=== PATIENT | female | born 1990 | race Caucasian/White ===

== ENCOUNTER 2017-07-09 09:27 | Emergency (ER) | payer SELFPAY ==
[2017-07-09 09:32] VITALS: BP 143/95
[2017-07-09] MEDS ORDERED: HYDROCODONE/ACETAMINOPHEN 5-325 MG TABLET PO ONE (09:49)
[2017-07-09] MEDS ORDERED: PENICILLIN V POTASSIUM 500 MG TABLET PO ONE (09:49)
[2017-07-09] MEDS ORDERED: IBUPROFEN 800 MG TABLET PO ONE (09:49)
--- NOTE | 2017-07-09 09:51 | ER Document Report ---
HPI - HPI Patient complains to provider of: dental pain Onset: Other - 2 days Onset/Duration: Persistent Quality of pain: Achy Pain Level: 4 Context: Patient complains of dental pain to left upper tooth for the past 2 days. Patient denies any fever or facial swelling. Associated Symptoms: Other - Dental pain. denies: Fever Exacerbated by: Denies Relieved by: Denies Similar symptoms previously: Yes Recently seen / treated by doctor: No - ROS ROS below otherwise negative: Yes Systems Reviewed and Negative: Yes All other systems reviewed and negative - EENT Notes: Dental pain - CARDIOVASCULAR Cardiovascular: DENIES: Chest pain - GASTROINTESTINAL Gastrointestinal: DENIES: Nausea, Patient vomiting - MUSCULOSKELETAL Musculoskeletal: DENIES: Neck Pain - DERM Skin Color: Normal Skin Problems: None Past Medical History - General Information source: Patient - Social History Smoking Status: Current Every Day Smoker Chew tobacco use (# tins/day): No Frequency of alcohol use: Rare Drug Abuse: None Occupation: none Family History: None Patient has suicidal ideation: No Patient has homicidal ideation: No Pulmonary Medical History: Reports: Hx Asthma Renal/ Medical History: Reports: Hx Kidney Stones, Hx Ovarian Cysts. Denies: Hx Peritoneal Dialysis Psychiatric Medical History: Reports: Hx Bipolar Disorder, Hx Depression - anxiety Past Surgical History: Reports: Hx Cholecystectomy, Hx Gynecologic Surgery - ovarian cyst - Immunizations Hx Diphtheria, Pertussis, Tetanus Vaccination: Yes Vertical Provider Document - CONSTITUTIONAL Agree With Documented VS: Yes Exam Limitations: No Limitations General Appearance: WD/WN, No Apparent Distress - INFECTION CONTROL TRAVEL OUTSIDE OF THE [place] IN LAST 30 DAYS: No - HEENT HEENT: Atraumatic, Normocephalic Mouth Diagram: 1 - tenderness, dental decay - NECK Neck: Normal Inspection, Supple - RESPIRATORY Respiratory: Breath Sounds Normal, No Respiratory Distress, Chest Non-Tender O2 Sat by Pulse Oximetry: 99 - CARDIOVASCULAR Cardiovascular: Regular Rate, Regular Rhythm, No Murmur - MUSCULOSKELETAL/EXTREMETIES Musculoskeletal/Extremeties: MAEW - NEURO Level of Consciousness: Awake, Alert, Appropriate Motor/Sensory: No Motor Deficit - DERM Integumentary: Warm, Dry, No Rash Course - Re-evaluation Re-evalutation: 07/09/17 09:50 The patient has been informed that they may have pre-hypertension or hypertension based on a blood pressure reading in the emergency department. I recommend that patient call the primary care provider listed on their discharge instructions or a physician of their choice by this week to arrange follow-up for further evaluation of possible pre-hypertension or hypertension. - Vital Signs Vital signs: Temp Pulse Resp BP Pulse Ox 98.5 F 85 16 143/95 H 99 07/09/17 09:30 07/09/17 09:30 07/09/17 09:30 07/09/17 09:30 07/09/17 09:30 Discharge - Discharge Clinical Impression: Elevated blood pressure reading, Tooth ache Condition: Stable Disposition: HOME, SELF-CARE Instructions: Dentist, Oral Narcotic Medication ([facility]), Penicillin V K ([facility]), Toothache ([facility]) Additional Instructions: Return immediately for any new or worsening symptoms Followup with your dental care provider, call tomorrow to make a followup appointment Prescriptions: Hydrocodone/Acetaminophen [[place] 5-325 Tablet] 1 each PO Q4 PRN #12 tablet PRN Reason: Naproxen [Naprosyn 250 Nmg Tablet] 1 tab PO BID #14 tablet Penicillin V Potassium [Penicillin Vk 500 mg Tablet] 500 mg PO BID #20 tablet Forms: Elevated Blood Pressure Referrals: [facility] [Provider Group] - Follow up as needed
== END 2017-07-09 09:57 | disposition home or self-care (01) ==
LOC: ER 09:27
DX: K02.9 Dental caries, unspecified (principal); K08.89 Other specified disorders of teeth and supporting structures; R03.0 Elevated blood-pressure reading, without diagnosis of hypertension; J45.909 Unspecified asthma, uncomplicated; F17.200 Nicotine dependence, unspecified, uncomplicated
CPT/HCPCS: 99282

== ENCOUNTER 2017-12-20 10:26 | Emergency (ER) | payer SELFPAY ==
--- NOTE | 2017-12-20 11:22 | ER Document Report ---
ED Medical Screen (RME) - General Chief Complaint: Chest Pain Stated Complaint: CHEST PAIN Time Seen by Provider: 12/20/17 11:20 Mode of Arrival: Ambulatory Information source: Patient Notes: This is a 27-year-old female with a history of sudden sharp retrosternal chest pain radiating to the back that started shortly prior to arrival. Patient states she does feel slightly shortness of breath. She denies any calf pain. She is currently not on any medicines. The patient does smoke a few cigarettes a day and she does melinda. She states she last very early this morning. PERC negative TRAVEL OUTSIDE OF THE [place] IN LAST 30 DAYS: No - Related Data Allergies/Adverse Reactions: acetaminophen [From Tylox] Allergy (Verified 07/09/17 09:30) oxycodone [From Tylox] Allergy (Verified 07/09/17 09:30) Tetanus Vaccines and Toxoid Allergy (Verified 07/09/17 09:30) Past Medical History - Social History Chew tobacco use (# tins/day): No Frequency of alcohol use: Occasional Drug Abuse: None Pulmonary Medical History: Reports: Hx Asthma Renal/ Medical History: Reports: Hx Kidney Stones, Hx Ovarian Cysts. Denies: Hx Peritoneal Dialysis Psychiatric Medical History: Reports: Hx Bipolar Disorder, Hx Depression - anxiety Past Surgical History: Reports: Hx Cholecystectomy, Hx Gynecologic Surgery - ovarian cyst - Immunizations Hx Diphtheria, Pertussis, Tetanus Vaccination: Yes Physical Exam - Vital signs Vitals: Temp Pulse Resp BP Pulse Ox 98.3 F 94 24 H 115/94 H 100 12/20/17 10:48 12/20/17 10:48 12/20/17 10:48 12/20/17 10:48 12/20/17 10:48 Course - Vital Signs Vital signs: Temp Pulse Resp BP Pulse Ox 98.3 F 94 24 H 115/94 H 100 12/20/17 10:48 12/20/17 10:48 12/20/17 10:48 12/20/17 10:48 12/20/17 10:48
[2017-12-20 11:55] LABS: ABSOLUTE BASOPHILS # (AUTO) 0.1 10^3/uL (0.0-0.2); ABSOLUTE EOSINOPHILS # (AUTO) 0.4 10^3/uL (0.0-0.6); ABSOLUTE LYMPHOCYTES (AUTO) 2.6 10^3/uL (0.5-4.7); ABSOLUTE MONOCYTES (AUTO) 0.8 10^3/uL (0.1-1.4); ABSOLUTE NEUT (AUTO) 8.6 10^3/uL (1.7-8.2); BASOPHILS % (AUTO) 0.9 % (0-2); EOSINOPHILS % (AUTO) 2.9 % (0-6); HEMATOCRIT 42.4 % (36.0-47.0); HEMOGLOBIN 14.4 g/dL (12.0-15.5); LYMPHOCYTES % (AUTO) 20.8 % (13-45); MEAN CORPUSCULAR VOLUME 85 fl (80-97); MONOCYTES % (AUTO) 6.4 % (3-13); PLATELET COUNT 389 10^3/uL (150-450); RED BLOOD COUNT 4.97 10^6/uL (3.72-5.28); RED CELL DISTRIBUTION WIDTH 13.8 % (11.5-14.0); TOTAL CELLS COUNTED % (AUTO) 100 %; WHITE BLOOD COUNT 12.4 10^3/uL (4.0-10.5)
[2017-12-20 12:12] LABS: ALANINE AMINOTRANSFERASE 37 U/L (9-52); ALBUMIN 4.7 g/dL (3.5-5.0); ALKALINE PHOSPHATASE 122 U/L (38-126); ANION GAP 12 (5-19); ASPARTATE AMINO TRANSFERASE 25 U/L (14-36); BILIRUBIN,DIRECT 0.2 mg/dL (0.0-0.4); BILIRUBIN,TOTAL 0.5 mg/dL (0.2-1.3); BLOOD UREA NITROGEN 11 mg/dL (7-20); CALCIUM 10.1 mg/dL (8.4-10.2); CARBON DIOXIDE 24 mmol/L (22-30); CHLORIDE 106 mmol/L (98-107); GLUCOSE 91 mg/dL (75-110); POTASSIUM 4.5 mmol/L (3.6-5.0); SODIUM 141.8 mmol/L (137-145); TOTAL PROTEIN 7.2 g/dL (6.3-8.2)
--- NOTE | 2017-12-20 12:44 | RADIOLOGY REPORT (SQ) ---
EXAM DESCRIPTION: CHEST PA/LAT COMPLETED DATE/TIME: 12/20/2017 12:26 pm REASON FOR STUDY: chest pain COMPARISON: None. EXAM PARAMETERS: NUMBER OF VIEWS: two views TECHNIQUE: Digital Frontal and Lateral radiographic views of the chest acquired. RADIATION DOSE: NA LIMITATIONS: none FINDINGS: LUNGS AND PLEURA: No opacities, masses or pneumothorax. No pleural effusion. MEDIASTINUM AND HILAR STRUCTURES: No masses or contour abnormalities. HEART AND VASCULAR STRUCTURES: Heart normal size. No evidence for failure. BONES: No acute findings. HARDWARE: None in the chest. OTHER: No other significant finding. IMPRESSION: NO SIGNIFICANT RADIOGRAPHIC FINDING IN THE CHEST. TECHNICAL DOCUMENTATION: JOB ID: [id number] [employer]- All Rights Reserved
[2017-12-20 12:59] LABS: APPEARANCE,URINE SLIGHTLY-CLOUDY; BILIRUBIN,URINE NEGATIVE (NEGATIVE); COLOR,URINE YELLOW; GLUCOSE, URINE NEGATIVE (NEGATIVE); KETONES,URINE NEGATIVE (NEGATIVE); LEUKOCYTE ESTERASE,URINE LARGE (NEGATIVE); NITRITE,URINE NEGATIVE (NEGATIVE); PROTEIN,URINE NEGATIVE (NEGATIVE); UROBILINOGEN,URINE NEGATIVE mg/dL (<2.0)
--- NOTE | 2017-12-20 13:54 | ER Document Report ---
ED General - General Chief Complaint: Chest Pain Stated Complaint: CHEST PAIN Time Seen by Provider: 12/20/17 11:20 Mode of Arrival: Ambulatory TRAVEL OUTSIDE OF THE [place] IN LAST 30 DAYS: No - HPI Patient complains to provider of: Chest pain Notes: Patient coming in for evaluation of chest pain. Patient states started while she was in a car. Patient states that her chest radiating to her back. Patient denies any syncope dizziness nausea vomiting fevers chills radiation of pain. Patient is resting comfortably states now pain is more pronounced when she moves around. Patient does smoke and they Fam was not doing these activities when pain started. Resting comfortably upon my evaluation. - Related Data Allergies/Adverse Reactions: acetaminophen [From Tylox] Allergy (Verified 07/09/17 09:30) oxycodone [From Tylox] Allergy (Verified 07/09/17 09:30) Tetanus Vaccines and Toxoid Allergy (Verified 07/09/17 09:30) Past Medical History - General Information source: Patient - Social History Smoking Status: Current Every Day Smoker Chew tobacco use (# tins/day): No Frequency of alcohol use: Occasional Drug Abuse: None Family History: None Patient has suicidal ideation: No Patient has homicidal ideation: No Pulmonary Medical History: Reports: Hx Asthma Renal/ Medical History: Reports: Hx Kidney Stones, Hx Ovarian Cysts. Denies: Hx Peritoneal Dialysis Psychiatric Medical History: Reports: Hx Bipolar Disorder, Hx Depression - anxiety Past Surgical History: Reports: Hx Cholecystectomy, Hx Gynecologic Surgery - ovarian cyst - Immunizations Hx Diphtheria, Pertussis, Tetanus Vaccination: Yes Review of Systems - Review of Systems Constitutional: No symptoms reported EENT: No symptoms reported Cardiovascular: Chest pain Respiratory: No symptoms reported Gastrointestinal: No symptoms reported Genitourinary: No symptoms reported Female Genitourinary: No symptoms reported Musculoskeletal: No symptoms reported Skin: No symptoms reported Hematologic/Lymphatic: No symptoms reported Neurological/Psychological: No symptoms reported -: Yes All other systems reviewed and negative Physical Exam - Vital signs Vitals: Temp Pulse Resp BP Pulse Ox 98.3 F 94 24 H 115/94 H 100 12/20/17 10:48 12/20/17 10:48 12/20/17 10:48 12/20/17 10:48 12/20/17 10:48 Interpretation: Normal - General General appearance: Appears well, Alert - HEENT Head: Normocephalic, Atraumatic Eyes: Normal Pupils: PERRL - Respiratory Respiratory status: No respiratory distress Chest status: Nontender Breath sounds: Normal Chest palpation: Normal - Cardiovascular Rhythm: Regular Heart sounds: Normal auscultation Murmur: No - Abdominal Inspection: Normal Distension: No distension Bowel sounds: Normal Tenderness: Nontender Organomegaly: No organomegaly - Back Back: Normal, Nontender - Extremities General upper extremity: Normal inspection, Nontender, Normal color, Normal ROM , Normal temperature General lower extremity: Normal inspection, Nontender, Normal color, Normal ROM , Normal temperature, Normal weight bearing. No: Mayte's sign - Neurological Neuro grossly intact: Yes Cognition: Normal Orientation: AAOx4 Michaela Coma Scale Eye Opening: Spontaneous Michaela Coma Scale Verbal: Oriented Michaela Coma Scale Motor: Obeys Commands Michaela Coma Scale Total: 15 Speech: Normal Motor strength normal: LUE, RUE, LLE, RLE Sensory: Normal - Psychological Associated symptoms: Normal affect, Normal mood - Skin Skin Temperature: Warm Skin Moisture: Dry Skin Color: Normal Course - Re-evaluation Re-evalutation: 12/20/17 15:25 The patient has atypical chest pain as the patient's chest pain is not suggestive of pulmonary embolus, cardiac ischemia, aortic dissection, or other serious etiology. Given the extremely low risk of these diagnoses further testing and evaluation for these possibilities does not appear to be indicated at this time. The patient has been instructed to return if the symptoms worsen or change in any way. Patient with UTI and [place] located will give him Macrobid. - Vital Signs Vital signs: Temp Pulse Resp BP Pulse Ox 98.1 F 94 16 136/87 H 99 12/20/17 14:07 12/20/17 10:48 12/20/17 14:07 12/20/17 14:07 12/20/17 14:07 - Laboratory Result Diagrams: 12/20/17 11:37 12/20/17 11:37 Laboratory results interpreted by me: 12/20/17 12/20/17 11:37 12:24 WBC 12.4 H Absolute Neutrophils 8.6 H Urine Blood SMALL H Ur Leukocyte Esterase LARGE H Discharge - Discharge Clinical Impression: Chest wall pain UTI (urinary tract infection) Qualifiers: Urinary tract infection type: site unspecified Hematuria presence: without hematuria Qualified Code(s): N39.0 - Urinary tract infection, site not specified Condition: Good Disposition: HOME, SELF-CARE Instructions: Anti-Inflammatory Medication ([facility]), Chest Wall Pain ([facility]), Nitrofurantoin ([facility]), Prilosec (Acid Pump Inhibitor) ([facility]), Urinary Tract Infection ([facility]) Additional Instructions: Your laboratory studies that did not show any signs of cardiac ischemia heart attack pneumonia or infection in the lungs blood clots within your lungs. Your urinalysis does show signs of urinary tract infection. I would recommend Macrobid for urinary tract infection for the next 5 days. Also recommend for your chest pain Motrin at that this may be chest wall pain or inflammation of the chest wall also may be GI related recommend starting Prilosec please follow- up with your primary care doctor or the clinic provided. Return to ER symptoms worsen. Prescriptions: Ibuprofen [Motrin 600 mg Tablet] 600 mg PO Q8HP PRN #90 tablet PRN Reason: Nitrofurantoin Macrocrystal [Macrodantin] 100 mg PO BID #14 capsule Omeprazole Magnesium [Prilosec Otc] 20 mg PO DAILY #30 tablet.dr Forms: Return to Work
[2017-12-20] MEDS ORDERED: KETOROLAC TROMETHAMINE 60 MG/2 ML SDV IM ONE (14:12)
[2017-12-20 14:30] VITALS: BP 136/87
--- NOTE | 2017-12-21 11:07 | EKG REPORT ---
SEVERITY:- NORMAL ECG - SINUS RHYTHM : Confirmed by: Keshia Vidales 21-Dec-2017 11:07:02
== END 2017-12-20 14:20 | disposition home or self-care (01) ==
LOC: ER 10:26
DX: R07.89 Other chest pain (principal); N39.0 Urinary tract infection, site not specified; J45.909 Unspecified asthma, uncomplicated; F17.200 Nicotine dependence, unspecified, uncomplicated; Z88.6 Allergy status to analgesic agent; Z88.5 Allergy status to narcotic agent; Z88.7 Allergy status to serum and vaccine
CPT/HCPCS: 93005; 99285; 96372; 36415; 87086; 84703; 85025; 80053; 81001; 84484; 85379; 71046; 93010; J1885

== ENCOUNTER 2018-04-06 17:24 | Emergency (ER) | payer SELFPAY ==
[2018-04-06 17:29] VITALS: BP 145/100
--- NOTE | 2018-04-06 17:48 | ER Document Report ---
HPI - HPI Patient complains to provider of: Toothache Onset: Just prior to arrival Onset/Duration: Gradual Quality of pain: Achy Pain Level: 5 Context: Patient states that she started to develop left upper dental pain about an hour prior to arrival. Patient reports dental decay. Patient denies any fever or facial swelling. Associated Symptoms: Other - Dental pain. denies: Fever Exacerbated by: Denies Relieved by: Denies Similar symptoms previously: Yes Recently seen / treated by doctor: No - ROS ROS below otherwise negative: Yes Systems Reviewed and Negative: Yes All other systems reviewed and negative - CONSTITUTIONAL Constitutional: DENIES: Fever - EENT Notes: Toothache - GASTROINTESTINAL Gastrointestinal: DENIES: Nausea, Patient vomiting - REPRODUCTIVE LMP: 3 weeks - MUSCULOSKELETAL Musculoskeletal: DENIES: Back Pain, Neck Pain - DERM Skin Color: Normal Skin Problems: None Past Medical History - General Information source: Patient - Social History Smoking Status: Current Every Day Smoker Smoking Education Provided: Yes Frequency of alcohol use: None Drug Abuse: None Occupation: None Lives with: Family Family History: None Pulmonary Medical History: Reports: Hx Asthma Renal/ Medical History: Reports: Hx Kidney Stones, Hx Ovarian Cysts. Denies: Hx Peritoneal Dialysis Psychiatric Medical History: Reports: Hx Bipolar Disorder, Hx Depression - anxiety Past Surgical History: Reports: Hx Cholecystectomy, Hx Gynecologic Surgery - ovarian cyst - Immunizations Hx Diphtheria, Pertussis, Tetanus Vaccination: Yes Vertical Provider Document - CONSTITUTIONAL Agree With Documented VS: Yes Exam Limitations: No Limitations General Appearance: WD/WN, No Apparent Distress - INFECTION CONTROL TRAVEL OUTSIDE OF THE [place] IN LAST 30 DAYS: No - HEENT HEENT: Atraumatic, Normocephalic Mouth Diagram: 1 - dental decay, tenderness, no gingival abscess - NECK Neck: Normal Inspection, Supple - RESPIRATORY Respiratory: Breath Sounds Normal, No Respiratory Distress - CARDIOVASCULAR Cardiovascular: Regular Rate, Regular Rhythm Course - Re-evaluation Re-evalutation: 04/06/18 18:03 Controlled substance database reviewed - Vital Signs Vital signs: Temp Pulse Resp BP Pulse Ox 98.5 F 99 20 145/100 H 99 04/06/18 17:27 04/06/18 17:27 06/02/18 17:27 04/06/18 17:27 04/06/18 17:27 Discharge - Discharge Clinical Impression: Toothache Condition: Stable Disposition: HOME, SELF-CARE Instructions: Oral Narcotic Medication ([facility]), Penicillin V K ([facility]), Toothache ( [facility]) Additional Instructions: Return immediately for any new or worsening symptoms Followup with your dental care provider, call tomorrow to make a followup appointment Prescriptions: Acetaminophen with Codeine [Acetaminophen-Cod #3 Tablet] 1 each PO Q6 PRN #15 tablet PRN Reason: Naproxen [Naprosyn 250 Nmg Tablet] 1 tab PO BID #14 tablet Penicillin V Potassium [Penicillin Vk 500 mg Tablet] 500 mg PO BID #20 tablet Forms: Smoking Cessation Education Referrals: [facility] [Provider Group] - Follow up as needed
[2018-04-06] MEDS ORDERED: PENICILLIN V POTASSIUM 500 MG TABLET PO ONE (17:52)
[2018-04-06] MEDS ORDERED: ACETAMINOPHEN WITH CODEINE #3 TABLET PO ONE (17:52)
[2018-04-06] MEDS ORDERED: IBUPROFEN 800 MG TABLET PO ONE (17:52)
== END 2018-04-06 18:05 | disposition home or self-care (01) ==
LOC: ER 17:24
DX: K02.9 Dental caries, unspecified (principal); K08.89 Other specified disorders of teeth and supporting structures; J45.909 Unspecified asthma, uncomplicated; F17.200 Nicotine dependence, unspecified, uncomplicated
CPT/HCPCS: 99282

== ENCOUNTER 2018-11-23 17:10 | Emergency (ER) | payer SELFPAY ==
[2018-11-23 17:30] VITALS: BP 155/109
[2018-11-23] MEDS ORDERED: HYDROCODONE/ACETAMINOPHEN 5-325 MG TABLET PO ONE (19:07)
--- NOTE | 2018-11-23 20:10 | RADIOLOGY REPORT (SQ) ---
EXAM DESCRIPTION: CT MAXILLOFACIAL WITHOUT IV CONTRAST COMPLETED DATE/TME: 11/23/2018 19:08 CLINICAL HISTORY: 28 years, Female, concern for abscess/ osteomyelitis COMPARISON: None. TECHNIQUE: Axial CT of the facial bones with sagittal and coronal reconstructions. This exam was performed according to our departmental dose-optimization program, which includes automated exposure control, adjustment of the mA and/or kV according to patient size and/or use of iterative reconstruction technique. FINDINGS: There is a dental caries in the left posterior mandible and maxilla. Small fluid collection is seen adjacent to the maxillary Anayeli (image 24 series 201) measuring approximately 11 x 4 mm. Dental caries also noted in the right posterior maxilla. The nasal bone is normal. The paranasal sinuses and mastoid air cells are clear. There is no fracture in the mandible, zygomatic arch or other facial bone. The orbital floors are normal and the bone margins of the orbits are normal. IMPRESSION: Multiple dental caries. Small odontogenic abscess along the buccal surface of the posterior left maxilla.
[2018-11-23] MEDS ORDERED: DEXAMETHASONE SOD PHOS INJ 10 MG/1 ML VIAL IV ONE (20:19)
[2018-11-23] MEDS ORDERED: CEFTRIAXONE 1 GM/D5W RTU 1 GM/50 ML RTUPB IV ONE (20:19)
[2018-11-23] MEDS ORDERED: CEFTRIAXONE INJ 1000 MG VIAL IV ONE (20:28)
--- NOTE | 2018-11-23 20:28 | ER Document Report ---
ED General - General Chief Complaint: Toothache Stated Complaint: JAW PAIN Time Seen by Provider: 11/23/18 17:48 Notes: 28 female with history of dental caries and odontogenic infections presents emergency department for severe jaw pain of the upper and lower jaws. She states it started about a week ago and got acutely worse last night. She says that she is unable to open her mouth all the way and has reduced appetite. She denies fevers, chills, nausea, vomiting. She denies any foul smell from the mouth. She denies any ear pain or sore throat. No other symptoms. TRAVEL OUTSIDE OF THE [place] IN LAST 30 DAYS: No - Related Data Allergies/Adverse Reactions: acetaminophen [From Tylox] Allergy (Verified 11/23/18 17:12) oxycodone [From Tylox] Allergy (Verified 11/23/18 17:12) Tetanus Vaccines and Toxoid Allergy (Verified 11/23/18 17:12) Past Medical History - General Information source: Patient - Social History Smoking Status: Current Every Day Smoker Family History: None Patient has suicidal ideation: No Patient has homicidal ideation: No Pulmonary Medical History: Reports: Hx Asthma Renal/ Medical History: Reports: Hx Kidney Stones, Hx Ovarian Cysts. Denies: Hx Peritoneal Dialysis Psychiatric Medical History: Reports: Hx Bipolar Disorder, Hx Depression - anxiety Past Surgical History: Reports: Hx Cholecystectomy, Hx Gynecologic Surgery - ovarian cyst - Immunizations Hx Diphtheria, Pertussis, Tetanus Vaccination: Yes Review of Systems - Review of Systems Constitutional: See HPI EENT: See HPI Cardiovascular: No symptoms reported Respiratory: No symptoms reported Gastrointestinal: No symptoms reported Genitourinary: No symptoms reported Female Genitourinary: No symptoms reported Musculoskeletal: No symptoms reported Skin: See HPI Hematologic/Lymphatic: No symptoms reported Neurological/Psychological: No symptoms reported Physical Exam - Vital signs Vitals: Temp Pulse Resp BP Pulse Ox 98.7 F 115 H 18 155/109 H 100 11/23/18 17:29 11/23/18 17:29 11/23/18 17:29 11/23/18 17:29 11/23/18 17:29 - HEENT Head: Normocephalic, Atraumatic Eyes: Normal Conjunctiva: Normal Extraocular movements intact: Yes Teeth diagram: 1 - Tenderness when tapping the tooth, purulent discharge on the pupil side and the gingiva. No gross erythema but evidence of gingivitis. - Respiratory Respiratory status: No respiratory distress Breath sounds: Normal - Cardiovascular Rhythm: Regular Heart sounds: Normal auscultation, S1 appreciated, S2 appreciated Course - Re-evaluation Re-evalutation: 11/23/18 20:25 28 female presents with exquisite jaw pain on the left side. On exam tenderness to light tapping on the #18 tooth with evidence of purulent discharge of the vehicle side of the gingiva. Patient did not have trismus and was unable to open her jaw to only about 2 finger with. Decision was made after consulting with Dr. Ortega to obtain a facial CT to rule out any concerning etiology like osteomyelitis or large abscess. CT showed evidence of a 4 x 11 mm abscess consistent with the area of the #18 tooth. There is a path for the infection to release. Plan is to give Rocephin 1 g IV x1 with dexamethasone 10 mg IV x1 and send her home with a prescription for penicillin. - Vital Signs Vital signs: Temp Pulse Resp BP Pulse Ox 98.7 F 115 H 18 155/109 H 100 11/23/18 17:29 11/23/18 17:29 11/23/18 17:29 11/23/18 17:29 11/23/18 17:29 Discharge - Discharge Clinical Impression: Abscessed tooth Condition: Good Disposition: HOME, SELF-CARE Instructions: Abscess ([facility]), [facility], Penicillin V K ([facility]) Additional Instructions: He was in the emergency department this evening for a tooth abscess. You need to go see a dentist. You have been prescribed pen VK that you need to take 4 times a day for the next 10 days. If you develop high fever your pain gets worse she gets swelling of the jaw or you have any other concerning symptoms please merely return to the emergency department to go see a dentist. Prescriptions: Penicillin V Potassium [Penicillin Vk 500 mg Tablet] 500 mg PO QID #28 tablet
== END 2018-11-23 21:10 | disposition home or self-care (01) ==
LOC: ER 17:10
DX: K04.7 Periapical abscess without sinus (principal); K08.89 Other specified disorders of teeth and supporting structures; R68.84 Jaw pain; R63.0 Anorexia; F17.200 Nicotine dependence, unspecified, uncomplicated; J45.909 Unspecified asthma, uncomplicated
CPT/HCPCS: 99283; 96375; 96365; 70486; J0696; J1100

== ENCOUNTER 2019-02-02 12:00 | Emergency (ER) | payer SELFPAY ==
[2019-02-02] MEDS ORDERED: CLINDAMYCIN HCL 150 MG CAPSULE PO ONE (13:20)
[2019-02-02] MEDS ORDERED: HYDROCODONE/ACETAMINOPHEN 5-325 MG TABLET PO ONE (13:20)
--- NOTE | 2019-02-02 13:27 | ER Document Report ---
ED Oral Problem - General Chief Complaint: Toothache Stated Complaint: MOUTH PAIN Time Seen by Provider: 02/02/19 13:10 Primary Care Provider: [facility] [Provider Group] - Follow up as needed Mode of Arrival: Ambulatory Information source: Patient Notes: 28-year-old female presented to ED for complaint of dental pain to the left upper and lower jaw. She states she also has multiple decayed teeth throughout her mouth. She states she has been seen for the pain multiple other times but she cannot afford to go to the dentist. She states the last time she got antibiotics and she did not think they gave her enough to last long enough to help. Father is present with her and he states he will see to it that she gets to a dentist this time. Patient is alert oriented respirations regular and unlabored in full sentences walks with a even steady gait. TRAVEL OUTSIDE OF THE [place] IN LAST 30 DAYS: No - HPI Patient complains to provider of: Toothache Onset: Other - Chronic Onset: Gradual Quality of pain: Sharp, Throbbing Severity: Moderate Pain Level: 4 Associated symptoms: Toothache Worsened by: Cold Relieved by: Nothing Similar symptoms previously: Yes Recently seen / treated by doctor/dentist: Yes - Related Data Allergies/Adverse Reactions: oxycodone [From Tylox] Allergy (Verified 02/02/19 12:02) Tetanus Vaccines and Toxoid Allergy (Verified 02/02/19 12:02) Past Medical History - General Information source: Patient - Social History Smoking Status: Current Every Day Smoker Cigarette use (# per day): Yes - 4-6 cigarettes a day Chew tobacco use (# tins/day): No Smoking Education Provided: Yes Frequency of alcohol use: None Drug Abuse: None Lives with: Family - and her 's child Family History: None Patient has suicidal ideation: No Patient has homicidal ideation: No - Past Medical History Cardiac Medical History: Reports: None Pulmonary Medical History: Reports: Hx Asthma EENT Medical History: Reports: Other - Teeth Neurological Medical History: Reports: None Endocrine Medical History: Reports: None Renal/ Medical History: Reports: Hx Kidney Stones, Hx Ovarian Cysts Malignancy Medical History: Reports: None GI Medical History: Reports: None Musculoskeletal Medical History: Reports None Skin Medical History: Reports None Psychiatric Medical History: Reports: Hx Bipolar Disorder, Hx Depression - anxiety Traumatic Medical History: Reports: None Infectious Medical History: Reports: None Past Surgical History: Reports: Hx Cholecystectomy, Hx Gynecologic Surgery - ovarian cyst - Immunizations Hx Diphtheria, Pertussis, Tetanus Vaccination: Yes Review of Systems - Review of Systems Constitutional: No symptoms reported EENT: Mouth pain, Dental problem Cardiovascular: No symptoms reported Respiratory: No symptoms reported Gastrointestinal: No symptoms reported Genitourinary: No symptoms reported Female Genitourinary: No symptoms reported Musculoskeletal: No symptoms reported Skin: No symptoms reported Hematologic/Lymphatic: No symptoms reported Neurological/Psychological: No symptoms reported -: Yes All other systems reviewed and negative Physical Exam - Vital signs Vitals: Temp Pulse Resp BP Pulse Ox 98.4 F 72 16 152/102 H 98 02/02/19 12:08 02/02/19 12:08 02/02/19 12:08 02/02/19 12:08 02/02/19 12:08 Interpretation: Normal - General General appearance: Appears well, Alert - HEENT Head: Normocephalic, Atraumatic Eyes: Normal Pupils: PERRL Ears: Normal External canal: Normal Tympanic membrane: Normal Sinus: Normal Nasal: Normal Mouth/Lips: Caries Mucous membranes: Normal Teeth diagram: 1 - Multiple dental decay throughout her entire mouth. She states that the pain is worse on her left side of her mouth this time but she has multiple teeth that need to be treated. Pharynx: Normal Neck: Normal - Respiratory Respiratory status: No respiratory distress Chest status: Nontender Breath sounds: Normal Chest palpation: Normal - Cardiovascular Rhythm: Regular Heart sounds: Normal auscultation Murmur: No - Abdominal Inspection: Normal Distension: No distension Bowel sounds: Normal Tenderness: Nontender Organomegaly: No organomegaly - Back Back: Normal, Nontender - Extremities General upper extremity: Normal inspection, Nontender, Normal color, Normal ROM, Normal temperature General lower extremity: Normal inspection, Nontender, Normal color, Normal ROM, Normal temperature, Normal weight bearing. No: Mayte's sign - Neurological Neuro grossly intact: Yes Cognition: Normal Orientation: AAOx4 Michaela Coma Scale Eye Opening: Spontaneous Michaela Coma Scale Verbal: Oriented Michaela Coma Scale Motor: Obeys Commands Quincy Coma Scale Total: 15 Speech: Normal Motor strength normal: LUE, RUE, LLE, RLE Sensory: Normal - Psychological Associated symptoms: Normal affect, Normal mood - Skin Skin Temperature: Warm Skin Moisture: Dry Skin Color: Normal Course - Re-evaluation Re-evalutation: 02/02/19 22:30 Presentation is most consistent with likely an infected tooth. Airway is patent. Vitals within normal limits. Patient is able swallow without any difficulty. There is no significant facial swelling. No evidence of Mani angina, apical abscess, or airway obstruction. Patient will be started on antibiotics. I've instructed to follow-up with dentistry as earliest ability for definitive management. At this time will discharge with return precautions and follow-up recommendations. Verbal discharge instructions given a the bedside and opportunity for questions given. Medication warnings reviewed. Patient is in agreement with this plan and has verbalized understanding of return precautions and the need for primary care follow-up in the next 24-72 hours. - Vital Signs Vital signs: Temp Pulse Resp BP Pulse Ox 98.2 F 74 20 142/93 H 98 02/02/19 13:30 02/02/19 13:30 02/02/19 13:30 02/02/19 13:30 02/02/19 13:30 Discharge - Discharge Clinical Impression: Pain due to dental caries Condition: Stable Disposition: HOME, SELF-CARE Additional Instructions: TOOTHACHE: Your pain is due to dental decay. The tooth must be repaired in order for you to feel better. You will, therefore, be referred to a dentist. We do not have dentists on the staff at [facility]. Severe swelling or drainage around a tooth usually means a dental abscess. This also requires evaluation and treatment by the dentist, but antibiotics may be prescribed while awaiting dental treatment. You should be rechecked immediately if you develop major swelling of the face, increasing pain, a lump in the jaw or gums, headache, difficulty swallowing, or fever. ORAL NARCOTIC MEDICATION: You have been given a [place] for pain control. This medication is a narcotic. It's best taken with food, as nausea can result if taken on an empty stomach. Don't operate machinery or drive within six hours of taking this medication. Do not combine this medicine with alcohol, or with any medication which can cause sedation (such as cold tablets or sleeping pills) unless you get permission from the physician. Narcotics tend to cause constipation. If possible, drink plenty of fluids and eat a diet high in fiber and fruits. Please be aware that prescription narcotics also have the potential for abuse. People become addicted to these medications because of the general sense of wellbeing that they induce. This feeling along with a significant reduction in tension, anxiety, and aggression provides a stimulating seductive quality to these drugs. Once your pain is under control, we encourage you to discard your unused narcotics. CLINDAMYCIN: You have been given a prescription for the antibiotic clindamycin. It is often prescribed for infections in the mouth, such as dental infections or abscesses, and for skin infections due to MRSA. It's important that you take all the medication, unless instructed otherwise by your physician. Failure to complete the entire course can result in relapse of your condition. Common side effects of antibiotics include nausea, intestinal cramping, or diarrhea. Women may develop vaginal yeast infections, and babies can get yeast (thrush) in the mouth following the use of antibiotics. Contact your physician if you develop significant side effects from this medication. Allergy to this antibiotic can result in hives, wheezing, faintness, or itching. If symptoms of allergy occur, stop the medication and call the doctor. FOLLOW-UP CARE: You have been referred for follow-up care to the dentists listed below. Call the dentists office for an appointment as you were instructed or within the next two days. If you experience worsening or a significant change in your symptoms, notify the physician immediately or return to the Emergency Department at any time for re-evaluation. [facility] [address] [place], [place] [facility] [address] [place] [address] Formerly [facility] [address] [facility] [address] [facility] [address] [facility] [address] [email or web address] [address] [place] [address] Sunday- 8:00am to 5:00 pm Will see patients from other [facility]. Charges based on income and family size and accepts Medicare, Medicaid, and Insurances Will pull molars [facility], [facility]. [id number] Hours of Operation 8:00 am - 4:30 pm weekdays The following dental offices accept Medicaid: [facility] Dr. Raymundo Dr. Tejada Dr. Stapleton Dr. Koo Mian Arzola, Sandi, and Ana Laura oral surgery Dr. De Leon ([place]) Dr. Montenegro ([place]) [facility] Drs. Otto ([place]) Dr. Hernandez ([place]) [facility] Dr. Wilson ([place]) Drs. Fernandez and ([place]) Medicaid Care Line Prescriptions: Clindamycin HCl 300 mg PO QID #40 capsule Referrals: [facility] [Provider Group] - Follow up as needed
[2019-02-02 13:35] VITALS: BP 142/93
== END 2019-02-02 13:35 | disposition home or self-care (01) ==
LOC: ER 12:00
DX: K02.9 Dental caries, unspecified (principal); K08.89 Other specified disorders of teeth and supporting structures; F17.210 Nicotine dependence, cigarettes, uncomplicated; J45.909 Unspecified asthma, uncomplicated; Z88.5 Allergy status to narcotic agent; Z88.7 Allergy status to serum and vaccine
CPT/HCPCS: 99282